=== PATIENT | female | born 1980 | race Hispanic/Latino ===

== ENCOUNTER 2018-01-23 12:29 | Emergency (ER) | payer SELFPAY ==
[2018-01-23] MEDS ORDERED: ACETAMINOPHEN EXTRA STRENGTH 500 MG TABLET ONE (13:52)
[2018-01-23] MEDS ORDERED: CLINDAMYCIN 600 MG/D5% WATER 50 ML IV ONE (13:52)
== END 2018-01-23 15:32 | disposition home or self-care (01) ==
LOC: EDH 12:29
DX: L03.116 Cellulitis of left lower limb (principal); Z72.0 Tobacco use; Z98.890 Other specified postprocedural states; Z88.8 Allergy status to other drugs, medicaments and biological substances
CPT/HCPCS: 96365; 99284; J3490

== ENCOUNTER 2022-01-03 08:42 | Emergency (ER) | payer OTHER ==
[~2022-01-03] VITALS: Ht 154.9 cm; Wt 84.4 kg
[2022-01-03] MEDS ORDERED: IBUPROFEN 600 MG TABLET PO ONE (09:30)
[2022-01-03] MEDS ORDERED: BACITRACIN 28.4 GM OINT TP ONE (09:30)
[2022-01-03] MEDS ORDERED: IBUP-2070 PO (09:43)
[2022-01-03] MEDS ORDERED: NEOMY SULF/BACITRA/POLYMYXIN B 1 EACH PACKET TP ONE (09:45)
[2022-01-03 11:54] VITALS: BP 129/85
== END 2022-01-03 11:55 | disposition home or self-care (01) ==
LOC: EDH 08:42
DX: S00.83XA Contusion of other part of head, initial encounter (principal); S00.81XA Abrasion of other part of head, initial encounter; M25.562 Pain in left knee; M25.521 Pain in right elbow; E11.9 Type 2 diabetes mellitus without complications; Z79.1 Long term (current) use of non-steroidal anti-inflammatories (NSAID); Z88.1 Allergy status to other antibiotic agents; W01.0XXA Fall on same level from slipping, tripping and stumbling without subsequent striking against object, initial encounter; Y93.89 Activity, other specified; Y92.89 Other specified places as the place of occurrence of the external cause; Y99.8 Other external cause status
CPT/HCPCS: 73560

== ENCOUNTER 2022-05-05 20:50 | Emergency (ER) | payer OTHER ==
[~2022-05-05] VITALS: Ht 154.9 cm; Wt 123.4 kg
[~2022-05-05 20:50] MED LIST: IBUP-2070 PO
[2022-05-06] MEDS ORDERED: NAPR-1180 PO (03:41)
[2022-05-06 03:59] VITALS: BP 134/72
[2022-05-06] MEDS ORDERED: LIDOCAINE 5% TOPICAL PATCH TP ONE (04:00)
[2022-05-06] MEDS ORDERED: KETOROLAC 60 MG VIAL (30MG/ML) IM ONE (04:00)
== END 2022-05-06 04:02 | disposition home or self-care (01) ==
LOC: EDH 20:50
DX: M25.562 Pain in left knee (principal); E66.01 Morbid (severe) obesity due to excess calories; M25.561 Pain in right knee; G89.29 Other chronic pain; R22.43 Localized swelling, mass and lump, lower limb, bilateral; M54.50 Low back pain, unspecified; E11.9 Type 2 diabetes mellitus without complications; Z79.1 Long term (current) use of non-steroidal anti-inflammatories (NSAID); Z88.1 Allergy status to other antibiotic agents
CPT/HCPCS: 72131; 81025; 93970; 96372; 99284; J1885

== ENCOUNTER 2022-05-30 19:12 | Emergency (ER) | payer OTHER ==
[~2022-05-30] VITALS: Ht 157.5 cm; Wt 116.1 kg
[~2022-05-30 19:12] MED LIST changes: +NAPR-1180 PO
[2022-05-30] MEDS ORDERED: KETOROLAC 60 MG VIAL (30MG/ML) IM ONE (20:00)
[2022-05-30] MEDS ORDERED: TRAM1TAB2 PO (20:29)
[2022-05-30 20:51] VITALS: BP 132/74
== END 2022-05-30 20:53 | disposition home or self-care (01) ==
LOC: EDH 19:12
DX: M17.0 Bilateral primary osteoarthritis of knee (principal); M25.562 Pain in left knee; Z88.8 Allergy status to other drugs, medicaments and biological substances; Z79.899 Other long term (current) drug therapy; Z98.890 Other specified postprocedural states
CPT/HCPCS: 99283; 73562 ×2; 96372; J1885